=== PATIENT | female | born 1985 | race Caucasian/White ===

== ENCOUNTER 2016-07-07 13:53 | Outpatient (CLI) | payer BC, OTHER ==
--- NOTE | 2016-07-07 19:00 | ULT ---
ABDOMINAL ULTRASOUND 07/07/16 Ultrasonography of the abdomen was performed. Documentary images and worksheets were provided and re viewed. The liver is slightly larger than expected with an oblique sagittal length of 17 cm. Its echo densit y is slightly increased raising a question of diffuse fatty infiltration. No focal hepatic lesions w ere seen. Portal venous blood flow was towards the liver as would be expected. The gallbladder conta ins no signs of stones or wall thickening. The common bile duct was a normal 3 mm in caliber. The pa ncreas and aorta were unremarkable. The spleen was normal in size measuring 9 cm in length. The righ t kidney was 10.2 cm long and the left was 12.0 cm. There may be a duplicated collecting system or p rominent renal column in the left kidney. No solid mass or hydronephrosis was seen in either. IMPRESSION: 1. No acute abdominal findings or changes to explain left upper quadrant pain. 2. Mild hepatic enlargement and possible mild fatty infiltration of the liver. POS: HOME
== END 2016-07-07 13:54 | disposition home or self-care (01) ==
LOC: BURULT 13:53
PROVIDERS: ATTEND Internal Medicine Gastroenterology
DX: R10.12 Left upper quadrant pain (principal); K92.1 Melena; K21.9 Gastro-esophageal reflux disease without esophagitis; A04.8 Other specified bacterial intestinal infections
CPT/HCPCS: 76700

== ENCOUNTER 2016-07-22 10:42 | Outpatient (CLI) | payer BC, OTHER ==
[2016-07-22 11:24] LABS: #Basophils 0.1 thou/uL (0.0-0.2); #Eosinphils 0.1 thou/uL (0.0-0.7); #Lymphocytes 1.1 thou/uL (1.20-3.40); #Monocytes 0.4 thou/uL (0.11-0.59); #Neutrophils 6.1 thou/uL (1.40-6.50); %Basophils 0.7 % (0.0-1.0); %Eosinophils 1.9 % (0.0-10.0); %Lymphocytes 13.8 % (21.0-51.0); %Neutrophils 78.6 % (42.0-75.0); Hemoglobin 13.9 g/dL (12.0-16.0); Mean Corpuscular HGB CONC 32.7 g/dL (32.0-36.0); Mean Corpuscular Hemoglobin 29.1 pg (27.0-31.0); Mean Platelet Volume 6.7 fL (7.4-10.4); Platelet Count 271 thou/uL (130-400); Red Blood Cell (RBC) Count 4.77 mill/uL (4.20-5.40); White Blood Cell (WBC) Count 7.7 thou/uL (4.8-10.8)
[2016-07-22 11:30] LABS: ALT (SGPT) 16 U/L (0-55); AST (SGOT) 16 U/L (5-34); Albumin 4.2 g/dL (3.5-5.0); Alkaline Phosphatase 90 U/L (40-150); Anion Gap 11 mmol/L (10-20); BUN (Urea Nitrogen) 9 mg/dL (7.0-18.7); Bilirubin, Total 0.5 mg/dL (0.2-1.2); Calc. Creatinine Clearance 0 mL/min (70-130); Calcium 8.7 mg/dL (7.8-10.44); Carbon Dioxide 26 mmol/L (22-29); Chloride 105 mmol/L (98-107); Estimated GFR-MDRD 82; Globulin 3.1 g/dL (2.4-3.5); Glucose 88 mg/dL (70-105); Lipase 29 U/L (8-78); Potassium 3.7 mmol/L (3.5-5.1); Protein, Total 7.3 g/dL (6.0-8.3); Sodium 138 mmol/L (136-145)
== END 2016-07-22 10:43 ==
LOC: HPCALD 10:42
PROVIDERS: ATTEND Family Medicine
DX: R10.13 Epigastric pain (principal)
CPT/HCPCS: 36415; 80053; 83690; 85025

== ENCOUNTER 2016-09-24 09:50 | Outpatient (CLI) | payer BC, OTHER | END 2016-09-24 09:51 | disposition home or self-care (01) | LOC: BURLAB 09:50 | PROVIDERS: ATTEND Physician Assistant Medical | DX: K29.70 Gastritis, unspecified, without bleeding (principal) | CPT/HCPCS: 87338 ==

== ENCOUNTER 2017-03-02 11:06 | Outpatient (CLI) | payer OTHER, BC ==
--- NOTE | 2017-03-02 19:44 | CT ---
CT ABDOMEN AND PELVIS WITH CONTRAST 03/02/[address] of the abdomen and pelvis was performed for evaluation of right upper quadrant pain. The pa tient is post laparoscopic cholecystectomy, though I do not known how recent that was. Comparison is made with a 12/30/15 CT scan. The lung bases are clear. There are no effusions. The liver, spleen, and pancreas appear normal. The gallbladder fossa appears normal. There are no abnormality fluid collections here or in the vicinity. The kidneys showed no mass or hydronephrosis. The adrenal glands and aorta appear normal. The CT of the pelvis shows the major finding on this study which is a moderate amount of free fluid i n the cul-de-sac. The etiology is not apparent on these films. There are no adnexal masses. There are no inflammatory changes around the base of the cecum. No free air was seen in the abdomen or pelvis. IMPRESSION: Moderate amounts of free fluid in the cul-de-sac, significantly more than would be expected from phys iologic causes. Correlate with clinical history and exam. Code T POS: HOME
== END 2017-03-02 11:07 | disposition home or self-care (01) ==
LOC: BURCT 11:06
PROVIDERS: ATTEND Surgery
DX: R10.11 Right upper quadrant pain (principal); R18.8 Other ascites
CPT/HCPCS: 74177

== ENCOUNTER 2017-10-05 15:57 | Outpatient (CLI) | payer BC, OTHER ==
--- NOTE | 2017-10-05 22:57 | RAD ---
LEFT HIP TWO VIEWS: 10/05/17 No fracture, dislocation, or joint space narrowing was seen. The greater trochanter was unremarkable in appearance. A bone island is seen in the femoral neck, of no concern. IMPRESSION: No significant finding. POS: HOME
== END 2017-10-05 15:58 | disposition home or self-care (01) ==
LOC: BURRAD 15:57
PROVIDERS: ATTEND Family Medicine
DX: M70.62 Trochanteric bursitis, left hip (principal)

== ENCOUNTER 2018-03-27 10:35 | Outpatient (CLI) | payer BC, OTHER ==
--- NOTE | 2018-03-27 11:09 | RAD ---
ABDOMEN 2 VIEWS: HISTORY: Epigastric pain. COMPARISON: None. FINDINGS: There are surgical clips in the right upper quadrant, compatible with previous cholecystectomy. Brigitte l gas pattern is nonspecific. No evidence of bowel distention or dilatation. No differential air fl uid levels. No pneumoperitoneum. Calcifications of the left and right hemipelvis are presumed to be phleboliths. 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 IMPRESSION: Nonspecific bowel gas pattern. POS: [facility]
== END 2018-03-27 10:36 | disposition home or self-care (01) ==
LOC: BURRAD 10:35
PROVIDERS: ATTEND Family Medicine
DX: R10.13 Epigastric pain (principal)
CPT/HCPCS: 74019

== ENCOUNTER 2019-04-26 11:56 | Outpatient (CLI) | payer BC, OTHER ==
--- NOTE | 2019-04-26 20:25 | ULT ---
PELVIC ULTRASOUND WITH ENDOVAGINAL IMAGING 04/26/19 Ultrasonography of the pelvis was performed for evaluation of dysfunctional uterine bleeding. Transab dominal images were obtained initially. Following this, endovaginal images were needed for greater de tail around the uterus and ovaries. The uterus measures 6.1 x 3.8 x 4.3 cm and the endometrium is a normal 4 mm thick. There is a small 1 .4 x 1.2 cm hypoechoic mass in the body of the uterus that is most likely a small fibroid. The right ovary appears normal and is 2.3 cm long. The left ovary is 2.8 cm long, appears normal. Blood flow w as seen in each ovary. None of the follicles in either ovary seemed excessively large or excessively numerous. No free fluid was seen in the cul-de-sac. IMPRESSION: 1. No acute pelvic findings. 2. Probable 1.4 cm uterine fibroid. POS: HOME
== END 2019-04-26 11:57 | disposition home or self-care (01) ==
LOC: BURULT 11:56
PROVIDERS: ATTEND Family Medicine
DX: N93.8 Other specified abnormal uterine and vaginal bleeding (principal)
CPT/HCPCS: 76856

== ENCOUNTER 2019-06-05 12:05 | Outpatient (CLI) | payer BC, OTHER ==
--- NOTE | 2019-06-06 07:56 | RAD ---
PA AND LATERAL VIEWS CHEST: HISTORY: Cough. COMPARISON: Comparison is made with the exam of 11/29/2014. FINDINGS: The cardiomediastinum is normal. The lungs are expanded and clear. The bony thorax is normal. IMPRESSION: Normal exam. POS: [facility]
== END 2019-06-05 12:06 | disposition home or self-care (01) ==
LOC: BURRAD 12:05
PROVIDERS: ATTEND Family Medicine
DX: R05 Cough (principal)
CPT/HCPCS: 71046

== ENCOUNTER 2020-10-17 18:10 | Emergency (ER) | payer BC, OTHER | END 2020-10-17 19:50 | disposition home or self-care (01) | LOC: BURERS 18:10 | DX: S92.354A Nondisplaced fracture of fifth metatarsal bone, right foot, initial encounter for closed fracture (principal); J45.909 Unspecified asthma, uncomplicated; X58.XXXA Exposure to other specified factors, initial encounter ==

== ENCOUNTER 2022-09-27 01:46 | Emergency (ER) | payer OTHER ==
[2022-09-27] MEDS ORDERED: Ondansetron PF 4 MG/2 ML Vial ONE (02:34)
[2022-09-27 02:36] LABS: #Basophils 0.1 thou/uL (0.0-0.2); #Eosinphils 0.2 thou/uL (0.0-0.7); #Lymphocytes 5.1 thou/uL (1.20-3.40); #Neutrophils 9.6 thou/uL (1.40-6.50); %Basophils 0.8 % (0.0-1.0); %Eosinophils 1.5 % (0.0-10.0); %Lymphocytes 31.5 % (21.0-51.0); %Monocytes 6.4 % (0.0-10.0); %Neutrophils 59.9 % (42.0-75.0); Hemoglobin 13.8 g/dL (12.0-16.0); Mean Corpuscular HGB CONC 33.6 g/dL (32.0-36.0); Mean Corpuscular Hemoglobin 29.4 pg (27.0-31.0); Mean Corpuscular Volume 87.6 fl (78.0-98.0); Mean Platelet Volume 6.2 fL (7.4-10.4); Platelet Count 464 10x3/uL (130-400); RBC Distribution Width 12.5 % (11.5-14.5); Red Blood Cell (RBC) Count 4.67 mill/uL (4.20-5.40)
[2022-09-27 02:49] LABS: ALT (SGPT) 75 U/L (8-55); AST (SGOT) 54 U/L (5-34); Albumin 4.3 g/dL (3.5-5.0); Alkaline Phosphatase 127 U/L (40-110); Anion Gap 21 mmol/L (10-20); BUN (Urea Nitrogen) 10 mg/dL (7.0-18.7); Bilirubin, Total 0.5 mg/dL (0.2-1.2); Calc. Creatinine Clearance 0 mL/min (70-130); Calcium 10.5 mg/dL (7.8-10.44); Carbon Dioxide 18 mmol/L (22-29); Chloride 104 mmol/L (98-107); Estimated GFR 82; Globulin 3.8 g/dL (2.4-3.5); Glucose 143 mg/dL (70-105); Lipase 55 U/L (8-78); Potassium 3.4 mmol/L (3.5-5.1); Protein, Total 8.1 g/dL (6.0-8.3); Sodium 140 mmol/L (136-145)
[2022-09-27] MEDS ORDERED: Promethazine HCl 25 MG/ML VIAL ONE (02:57)
[2022-09-27] MEDS ORDERED: Metoclopramide HCl 10 MG/2 ML VIAL ONE (03:47)
[2022-09-27 04:20] LABS: Bilirubin Negative (Negative); Blood, Urine Negative (Negative); Clarity Clear (Clear); Glucose, Urine (Dipstick) Negative (Negative); Ketone, Urine Negative (Negative); Leukocyte Negative (Negative); Nitrite Negative (Negative); Protein, Urine (Dipstick) Negative (Neg-Trace); Urobilinogen 0.2 mg/dL (Less than 2)
[2022-09-27 04:21] LABS: Pregnancy Test - Urine (BHCG) Negative (Negative); Pregu Control Background? CLEAR/WHITE (CLR/WHITE); Pregu Control Bar Appear? YES (CONTROL BAR)
[2022-09-27 04:34] LABS: Bacteria/HPF Rare-Few HPF (None Seen); CAUTI Indications for Culture Dysuria,urgency,freq; RBC/HPF 0-3 HPF (0-3); Squamous Epithelial 0-3 HPF (0-3); WBC/HPF 0-3 HPF (0-3); Yeast-Budding Rare HPF (None Seen)
[2022-09-27 04:35] LABS: Urine Culture Reflex No No
[2022-09-27 06:57] LABS: #Basophils 0.1 thou/uL (0.0-0.2); #Lymphocytes 1.2 thou/uL (1.20-3.40); #Monocytes 0.9 thou/uL (0.11-0.59); #Neutrophils 17.5 thou/uL (1.40-6.50); %Basophils 0.3 % (0.0-1.0); %Eosinophils 0.1 % (0.0-10.0); %Lymphocytes 6.3 % (21.0-51.0); %Monocytes 4.6 % (0.0-10.0); %Neutrophils 88.7 % (42.0-75.0); Hemoglobin 13.2 g/dL (12.0-16.0); Mean Corpuscular HGB CONC 32.7 g/dL (32.0-36.0); Mean Corpuscular Hemoglobin 29.1 pg (27.0-31.0); Mean Corpuscular Volume 88.7 fl (78.0-98.0); Mean Platelet Volume 5.9 fL (7.4-10.4); Platelet Count 464 10x3/uL (130-400); RBC Distribution Width 12.1 % (11.5-14.5); Red Blood Cell (RBC) Count 4.53 mill/uL (4.20-5.40); White Blood Cell (WBC) Count 19.7 10x3/uL (4.8-10.8)
[2022-09-27 07:07] LABS: Lactic Acid 3.2 mmol/L (0.5-2.2)
[2022-09-27 07:11] LABS: Anion Gap 17 mmol/L (10-20); BUN (Urea Nitrogen) 10 mg/dL (7.0-18.7); Calc. Creatinine Clearance 0 mL/min (70-130); Calcium 9.2 mg/dL (7.8-10.44); Carbon Dioxide 20 mmol/L (22-29); Chloride 107 mmol/L (98-107); Estimated GFR 101; Glucose 162 mg/dL (70-105); Potassium 3.9 mmol/L (3.5-5.1); Sodium 140 mmol/L (136-145)
[2022-09-27] MEDS ORDERED: Iopamidol 370 76% 100 ML VIAL ONE (12:57)
== END 2022-09-27 09:02 | disposition short-term general hospital (02) ==
LOC: BURERS 01:46
DX: R11.2 Nausea with vomiting, unspecified (principal); K59.00 Constipation, unspecified; E86.0 Dehydration
CPT/HCPCS: 74177; 80053; 81001; 81025; 83605; 83690; 85025; 96361; 96374; 96375; J2405; J2550; J2765; Q9967